=== PATIENT | male | born 1995 ===

== ENCOUNTER 2021-07-30 01:25 | Outpatient (CLI) | payer OTHER, SELFPAY ==
--- NOTE | 2021-07-30 09:00 | DI.RAD_ITS ---
Exam(s) XR LUMBAR SPINE AP, LAT EXAM: XR LUMBAR SPINE AP, LAT CLINICAL HISTORY: ARTHRITIS, M13.80, VES #[id number]. TECHNIQUE: 2D digital imaging was performed. Two views COMPARISON: No exams were available for comparison FINDINGS: BONES: No fracture or destructive lesion. Vertebral bodies are unremarkable. No spondylolysis.. Yaakov allen normally mineralized. DISKS: Mild L5-S1 disc space narrowing. Remaining intervertebral disc spaces are maintained. ALIGNMENT: Lumbar spinal alignment is within normal limits. SOFT TISSUE: Normal. IMPRESSION: Mild L5-S1 disc space narrowing. DATA REPOSITORY: RADIATION DOSE DELIVERED:
--- NOTE | 2021-07-30 09:00 | DI.RAD_ITS ---
Exam(s) XR THORACIC SPINE COMPLETE EXAM: XR THORACIC SPINE COMPLETE CLINICAL HISTORY: ARTHRITIS, M13.80, VES #[id number]. TECHNIQUE: 2D digital imaging was performed. Two views. COMPARISON: No exams were available for comparison FINDINGS: BONES: There is no fracture or destructive lesion. The vertebral bodies and posterior elements are un remarkable. Minimal endplate osteophytes. DISKS:Alignment is within normal limits. Interverebral disc spaces are maintained. SOFT TISSUE: Visualized lungs are clear. Heart size normal. IMPRESSION: Unremarkable radiographs of the thoracic spine. DATA REPOSITORY: RADIATION DOSE DELIVERED:
--- NOTE | 2021-07-30 09:00 | DI.RAD_ITS ---
Exam(s) XR KNEE RT 3V AP,LAT,ISAAC EXAM: XR KNEE RT 3V AP,LAT,ISAAC CLINICAL HISTORY: ARTHRITIS, M13.80, VES #[id number]. TECHNIQUE: 2D digital imaging was performed. Three views. COMPARISON: CR XR KNEE LT 3V AP,LAT,ISAAC from 07/30/2021 FINDINGS: BONES: No acute fracture is present. No bony destructive lesion is seen. JOINTS: The knee is normally aligned. No joint effusion is seen. SOFT TISSUE: Normal. IMPRESSION: Unremarkable radiographs of the right knee. DATA REPOSITORY: RADIATION DOSE DELIVERED:
--- NOTE | 2021-07-30 09:00 | DI.RAD_ITS ---
Exam(s) XR KNEE LT 3V AP,LAT,ISAAC EXAM: XR KNEE LT 3V AP,LAT,ISAAC CLINICAL HISTORY: ARTHRITIS, M13.80, VES #[id number]. TECHNIQUE: 2D digital imaging was performed. Three views. COMPARISON: No exams were available for comparison FINDINGS: BONES: No acute fracture is present. No bony destructive lesion is seen. JOINTS: The knee is normally aligned. No joint effusion is seen. Minimal periarticular spurring. Treasure int spaces well maintained SOFT TISSUE: Normal. IMPRESSION: Minimal degenerative changes. DATA REPOSITORY: RADIATION DOSE DELIVERED:
--- NOTE | 2021-07-30 09:00 | DI.RAD_ITS ---
Exam(s) XR SACRUM COCCYX EXAM: XR SACRUM COCCYX CLINICAL HISTORY: ARTHRITIS, M13.80, VES #[id number]. TECHNIQUE: 2D digital imaging was performed. Three views. COMPARISON: No exams were available for comparison FINDINGS: BONES: No acute fracture is present. No bony destructive lesion is seen. Bones normally mineralized. JOINTS: SI joints appear normal SOFT TISSUE: Normal. IMPRESSION: Unremarkable radiographs of the sacrum and coccyx DATA REPOSITORY: RADIATION DOSE DELIVERED:
--- NOTE | 2021-07-30 09:10 | DI.RAD_ITS ---
Exam(s) XR HIP RT 1V EXAM: XR HIP RT 1V CLINICAL HISTORY: ARTHRITIS, M13.80, VES #[id number]. TECHNIQUE: 2D digital imaging was performed. Two views COMPARISON: No exams were available for comparison FINDINGS: BONES: No acute fracture is present. No bony destructive lesion is seen. Bones normally mineralized. JOINTS: No dislocation present. Hip joints are well maintained. SI joints unremarkable. SOFT TISSUE: Normal. IMPRESSION: Unremarkable radiographs of the right hip. Unremarkable radiographs of the pelvis. DATA REPOSITORY: RADIATION DOSE DELIVERED:
--- NOTE | 2021-07-30 09:10 | DI.RAD_ITS ---
Exam(s) XR CERVICAL SP PANIAGUA TRAUMA 2-3V EXAM: XR CERVICAL SP PANIAGUA TRAUMA 2-3V CLINICAL HISTORY: ARTHRITIS, M13.80, VES #[id number]. TECHNIQUE: 2D digital imaging was performed. COMPARISON: No exams were available for comparison FINDINGS: BONES: No fracture or destructive lesion. Vertebral bodies are unremarkable. Bones normally minerali zed. DISKS: Intervertebral disc spaces are maintained. ALIGNMENT: Cervical spinal alignment is within normal limits. The odontoid and atlantoaxial articulat ions are normal. SOFT TISSUE: Normal. The lung apices are clear. IMPRESSION: Unremarkable radiographs of the cervical spine. DATA REPOSITORY: RADIATION DOSE DELIVERED:
== END 2021-07-30 01:45 ==
PROVIDERS: Visit Provider Chiropractor
DX: M25.551 Pain in right hip (principal); M54.2 Cervicalgia; M54.6 Pain in thoracic spine; M53.3 Sacrococcygeal disorders, not elsewhere classified; M54.59 Other low back pain; M51.37 Other intervertebral disc degeneration, lumbosacral region; M25.561 Pain in right knee; M25.562 Pain in left knee; M13.862 Other specified arthritis, left knee; M13.88 Other specified arthritis, other site
CPT/HCPCS: 73562; 72040; 72072; 72100; 72220; 73501